=== PATIENT | female | born 2000 | race Two or more races ===

== ENCOUNTER 2020-02-19 13:30 | Inpatient (IN) | payer OTHER ==
[~2020-02-19] VITALS: Ht 160 cm; Wt 61.7 kg
[2020-02-27] MEDS ORDERED: PRENATAL TABLE1 EAC1 PO (06:46)
== END 2020-03-07 15:44 | disposition home or self-care (01) | DRG 807 ==
LOC: OB/GYN 03-04 23:47 → LDR 03-04 23:47 → OB/GYN 03-05 16:49 → SURH 03-07 13:30 → OB/GYN 03-07 15:44
PROVIDERS: ADMIT Obstetrics & Gynecology; ATTEND Obstetrics & Gynecology
PROC: 10E0XZZ Delivery of Products of Conception, External Approach (ICD-10-PCS; principal; 2020-03-05)
PROC: 0W8NXZZ Division of Female Perineum, External Approach (ICD-10-PCS; 2020-03-05)
PROC: 4A1HXFZ Monitoring of Products of Conception, Cardiac Rhythm, External Approach (ICD-10-PCS; 2020-03-05)
DX: O80 Encounter for full-term uncomplicated delivery (principal); Z37.0 Single live birth; Z20.822 Contact with and (suspected) exposure to COVID-19; Z3A.39 39 weeks gestation of pregnancy

== ENCOUNTER 2020-02-27 06:20 | Outpatient (CLI) | payer OTHER ==
[2020-02-27] MEDS ORDERED: PRENATAL TABLE1 EAC1 PO (06:46)
== END 2020-02-27 13:27 | disposition home or self-care (01) ==
LOC: OBS/DEL 06:20
PROVIDERS: ATTEND Obstetrics & Gynecology
DX: O26.893 Other specified pregnancy related conditions, third trimester (principal); R10.2 Pelvic and perineal pain